=== PATIENT | male | born 1935 | race Caucasian/White ===

== ENCOUNTER 2019-10-28 20:09 | Emergency (ER) | payer OTHER ==
[~2019-10-28] VITALS: Ht 180.3 cm; Wt 77.1 kg
[~2019-10-28 20:09] MED LIST: ASCO500 PO; ASPI81EC PO; ATENOLOL-? DOSE; BIMA.03OPS; DIAZ5 PO; ERGO400 PO; HYDROCHLOROTHIAZIDE; INDO25 PO; LEVSOD100 PO; LISHYD1012 PO; OXYACE5T PO; SIMV10 PO; TIMDOROPSO; TOCO400 PO; VERA240ERB PO; [UNRECOGNIZED DRUG - REMARK]
[2019-10-28] MEDS ORDERED: GABAPENTIN (21:06)
[2019-10-28] MEDS ORDERED: PROB500 PO (21:06)
[2019-10-28] MEDS ORDERED: SILVER SULFADIA50 GM TOP (21:40)
[2019-10-28] MEDS ORDERED: Roxicodone5 MG PO (21:40)
== END 2019-10-28 22:14 | disposition home or self-care (01) ==
LOC: ER 20:09
DX: T21.01XA Burn of unspecified degree of chest wall, initial encounter (principal); T20.00XA Burn of unspecified degree of head, face, and neck, unspecified site, initial encounter; T22.00XA Burn of unspecified degree of shoulder and upper limb, except wrist and hand, unspecified site, initial encounter; S80.812A Abrasion, left lower leg, initial encounter; S80.811A Abrasion, right lower leg, initial encounter; H72.92 Unspecified perforation of tympanic membrane, left ear; I10 Essential (primary) hypertension; E03.9 Hypothyroidism, unspecified; X08.8XXA Exposure to other specified smoke, fire and flames, initial encounter
CPT/HCPCS: 99283; A9270

== ENCOUNTER → 2021-05-05 | Outpatient (CLI) | payer OTHER ==
[~2021-05-05] MED LIST changes: +GABAPENTIN; +PROB500 PO; +Roxicodone5 MG PO; +SILVER SULFADIA50 GM TOP
[2021-05-07 11:02] LABS: Stool Occult Bld Immuno 1 Negative (NEGATIVE)
== END | disposition home or self-care (01) ==
LOC: LAB SHORT 20:00 → LAB 20:00
PROVIDERS: Internal Medicine
DX: Z12.11 Encounter for screening for malignant neoplasm of colon (principal)
CPT/HCPCS: G0328

== ENCOUNTER → 2024-11-30 | Outpatient (CLI) | payer OTHER ==
[~2024-11-30] MED LIST changes: +CEFD300 PO
[2024-11-30 15:16] LABS: Creatinine, Urine Random 37.5 mg/dL (27.00-270.00); Microalb/Creat Ratio UR, Rand 30.4 mg/g (0.000-30.000); Microalbumin, Random Urine 11.4 mg/L (0.000-20.000)
== END ==
LOC: LAB 10:50 → LAB SHORT 10:50
PROVIDERS: Internal Medicine
DX: N18.32 Chronic kidney disease, stage 3b (principal); E11.29 Type 2 diabetes mellitus with other diabetic kidney complication
CPT/HCPCS: 82043; 82570